=== PATIENT | female | born 1975 | race Caucasian/White ===

== ENCOUNTER → 2016-12-21 | Outpatient (REF) | payer OTHER ==
[~2016-12-21] MED LIST: ACYC400T PO; FAMC500T17 PO; KETO10TA PO; PRX10T PO
[2016-12-21 11:20] LABS: BASOPHILS % (AUTO) 0 % (0-2); EOSINOPHILS # (AUTO) 0.3 10^3uL; EOSINOPHILS % (AUTO) 4 % (0-4); LYMPHOCYTES # (AUTO) 1.1 X10^3; MEAN PLATELET VOLUME 10.5 FL (6.0-9.5); MONOCYTES # (AUTO) 0.6 X10^3; MONOCYTES % (AUTO) 9 % (3-11); NEUTROPHILS # (AUTO) 4.7 X10^3; NEUTROPHILS % (AUTO) 70 % (51-67); PLATELET COUNT 389 10^3uL (150-450)
[2016-12-21 11:25] LABS: MEAN CORPUSCULAR HEMOGLOBIN 24.2 PG (26.0-34.0); MEAN CORPUSCULAR VOLUME 76 FL (80-100)
[2016-12-21 11:43] LABS: ANION GAP 14.8 MEQ/L (3-15); TOTAL PROTEIN 7.2 g/dL (6.4-8.5)
[2016-12-22 22:57] LABS: IRON 30 ug/dL (50-170)
[2016-12-22 23:21] LABS: VITAMIN B 12 372 pg/mL (213-816)
== END ==
LOC: LAB 11:02
PROVIDERS: ATTEND Nurse Practitioner Family
DX: Z00.00 Encounter for general adult medical examination without abnormal findings (principal); N94.5 Secondary dysmenorrhea; D64.9 Anemia, unspecified
CPT/HCPCS: 80053; 80061; 82607; 82728; 83540; 84443; 85025